=== PATIENT | female | born 1940 | race Caucasian/White ===

== ENCOUNTER 2017-11-15 19:58 | Emergency (ER) | payer OTHER, MEDICARE ==
[~2017-11-15] VITALS: Ht 152.4 cm; Wt 59.0 kg
[2017-11-15 21:03] VITALS: BP 179/98
--- NOTE | 2017-11-15 21:15 | CT SCAN REPORT ---
EXAMINATION: NONCONTRAST HEAD CT NONCONTRAST CERVICAL SPINE CT INDICATION INFORMATION: Fall with head strike COMPARISON: None TECHNIQUE: Separate noncontrast CT examinations of the head and cervical spine were performed. Coronal and sagittal images were created for each examination at the technologist workstation. DLP: 922 mGy-cm FINDINGS: Head: There is no evidence of acute intracranial hemorrhage or territorial infarction. No abnormal mass effect or midline shift is seen. Osborn to white matter differentiation is well preserved. No extra-axial fluid collections are identified. No hydrocephalus. No significant volume loss. There is no abnormal attenuation within the brain parenchyma. Prominent soft tissue swelling overlying the right occipital and parietal region with subgaleal hematoma. No associated calvarial fracture. The mastoid air cells and visualized portions of the paranasal sinuses are well aerated. Cervical spine: There is anatomic alignment of the vertebral bodies and posterior elements. The atlantoaxial and atlantooccipital articulations are intact. Vertebral body heights are maintained. There is multilevel intervertebral disc space narrowing with endplate osteophyte formation and facet arthropathy. No evidence of acute fracture. No prevertebral soft tissue swelling. Nodular scarring of the lung apices.. The thyroid gland is unremarkable. IMPRESSION: 1. No acute intracranial findings. Prominent posterior right soft tissue swelling with subgaleal hematoma. 2. No acute fracture or malalignment of the cervical spine. Mild multilevel degenerative changes.
--- NOTE | 2017-11-15 22:36 | ED MVC/FALL/TRAUMA COMPLAINT ---
History of Present Illness General Chief Complaint: Facial or Head Injury Stated Complaint: FALL ON ICE, HEAD STRIKE , (-) LOC Source: patient, DAUGHTER Exam Limitations: no limitations Vital Signs & Intake/Output Vital Signs & Intake/Output Vital Signs Date Time Temp Pulse Resp B/P B/P Pulse O2 O2 Flow FiO2 Mean Ox Delivery Rate 11/15 2103 96.8 72 18 179/98 98 Room Air Allergies Coded Allergies: NO KNOWN ALLERGIES (05/12/13) Triage Note: PT TO ED C/O HEADACHE AND SORE NECK ON RT SIDE S/P SLIPPING AND FALLING ON ICE TWICE IN A MINUTE AT 10 AM THIS AM. DENIES LOC. DENIES N/V. C/O HEADACHE. PT REFUSES IBUPROFIN OR TYLENOL IN TRIAGE. DENIES BLOOD THINNERS Triage Nurses Notes Reviewed? yes Onset: Morning Duration: hour(s):, better, constant, continues in ED Timing: multiple episodes today Severity: moderate Injuries/Fall Location: head, neck, lower extremity (RIGHT HIP) Method of Injury: fall Loss of Consciousness: no loss of consciousness HPI: Patient presents for evaluation of injury sustained status post fall on the ice this morning. 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 When her daughter returned home she requested that the patient be evaluated in the emergency department. There has been no altered mental status vomiting or visual changes. Although the patient states that her right hip is bothering her she has been ambulatory since fall. According to the patient's daughter she is at her baseline mentation. Patient denies numbness or tingling loss of sensation or paresthesias. Past History Travel History Traveled to [place] past 21 day No Medical History Any Pertinent Medical History? see below for history EENT: cataracts Psychiatric: depression Endocrine: hypothyroidism Surgical History Surgical History: non-contributory Psychosocial History What is your primary language Greenlandic Tobacco Use: Quit >30 days ago ETOH Use: occasional use Illicit Drug Use: denies illicit drug use Family History Hx Contributory? No Review of Systems Review of Systems Constitutional: Reports: no symptoms. Eyes: Reports: no symptoms. Ears, Nose, Throat, Mouth: Reports: no symptoms. Respiratory: Reports: no symptoms. Cardiovascular: Reports: no symptoms. Gastrointestinal/Abdominal: Reports: no symptoms. Genitourinary: Reports: no symptoms. Musculoskeletal: Reports: see HPI. Skin: Reports: no symptoms. Neurological/Psychological: Reports: headache. All Other Systems: Reviewed and Negative Physical Exam Physical Exam General Appearance: SEE BELOW Comments: Gen.: Well-nourished, well-developed, no acute respiratory distress. Head: Normocephalic, mild soft tissue swelling and tenderness over the right occipital lobe medially Eyes: Normal inspection bilaterally, oswaldo, EOMI Ears: Normal inspection bilaterally, no patel sign Nose: Normal inspection Throat/mouth : Moist mucosa Neck: Supple, full range of motion, no goiter, mild tenderness over the right trapezius Heart: Regular rate and rhythm, no murmurs rubs or gallops Lungs: Clear to auscultation bilaterally with normal air entry Chest: Nontender Back: Normal range of motion, nontender Abdomen: Soft, nontender, nondistended, normal bowel sounds Pelvis: Stable and nontender Extremities: Normal range of motion grossly, no tenderness, no cyanosis clubbing or edema Neurologic: Cranial nerves 2 through 12 intact, speech is clear, gait is stable Skin: warm and dry Psychiatric: Calm, cooperative, no apparent delusions or hallucinations Core Measures ACS in differential dx? No CVA/TIA Diagnosis No Sepsis Present: No Sepsis Focused Exam Completed? No Progress Differential Diagnosis: HEAD TRAUMA, c-SPINE TRAUMA, EXTREMITY TRAUMA Plan of Care: [id number] pain medication, ice, rest Diagnostic Imaging: Discussed w/RAD: CT Scan. Radiology Impression: PATIENT: YO ABRAHAM PRESENT AGE: 76 PATIENT ACCOUNT NO: [id number] : 39 LOCATION: [facility] ORDERING PHYSICIAN: Michelle HO SERVICE DATE: 11/15/17 EXAM TYPE: CAT - CT CERV SPINE WO IV CONTRAST; CT HEAD WO IV CONTRAST EXAMINATION: NONCONTRAST HEAD CT NONCONTRAST CERVICAL SPINE CT INDICATION INFORMATION: Fall with head strike COMPARISON: None TECHNIQUE: Separate noncontrast CT examinations of the head and cervical spine were performed. Coronal and sagittal images were created for each examination at the technologist workstation. DLP: 922 mGy-cm FINDINGS: Head: There is no evidence of acute intracranial hemorrhage or territorial infarction. No abnormal mass effect or midline shift is seen. Osborn to white matter differentiation is well preserved. No extra-axial fluid collections are identified. No hydrocephalus. No significant volume loss. There is no abnormal attenuation within the brain parenchyma. Prominent soft tissue swelling overlying the right occipital and parietal region with subgaleal hematoma. No associated calvarial fracture. The mastoid air cells and visualized portions of the paranasal sinuses are well aerated. Cervical spine: There is anatomic alignment of the vertebral bodies and posterior elements. The atlantoaxial and atlantooccipital articulations are intact. Vertebral body heights are maintained. There is multilevel intervertebral disc space narrowing with endplate osteophyte formation and facet arthropathy. No evidence of acute fracture. No prevertebral soft tissue swelling. Nodular scarring of the lung apices.. The thyroid gland is unremarkable. IMPRESSION: 1. No acute intracranial findings. Prominent posterior right soft tissue swelling with subgaleal hematoma. 2. No acute fracture or malalignment of the cervical spine. Mild multilevel degenerative changes. DICTATED BY: Abraham Harrington MD DATE/TIME DICTATED:11/15/172106 WARRANTY ADMINISTRATOR:YASMINE DATE/TIME TRANSCRIBED:2106 CONFIDENTIAL, DO NOT COPY WITHOUT APPROPRIATE AUTHORIZATION. < Electronically signed in Other Vendor System> SIGNED BY: Abraham Harrington MD 11/15/172114 Departure Departure Disposition: HOME OR SELF CARE Condition: Stable Clinical Impression Primary Impression: Minor head trauma Secondary Impressions: Fall Qualifiers: Encounter type: initial encounter Qualified Code: W19.XXXA - Unspecified fall, initial encounter Neck strain Qualifiers: Encounter type: initial encounter Qualified Code: S16.1XXA - Strain of muscle, fascia and tendon at neck level, initial encounter Referrals: Patient Has No Primary Care Dr (PCP/Family) Additional Instructions: Ice to any areas of swelling over the next 2-3 days. Vrou-uhd-pabuvjp pain medication as needed. Rest and avoid exertion. Notify your primary care physician of this emergency department visit and treatment plan and arrange for follow-up appointment if not improved over the next 5-7 days. Return if any concerns or sudden worsening. Please note that there might be incidental findings in your evaluation that are unrelated to the current emergency department visit. Please notify your primary care doctor about this emergency department visit in order to obtain and review all of the testing performed so that these incidental findings can be monitored as needed. If you had an x-ray performed, please understand that some fractures may not be seen on the initial set of x-rays. If your symptoms persist you might need a repeat set of x-rays to check for such a fracture. If you had a laceration evaluated, please understand that foreign bodies such as glass or wood may not be visible to the naked eye or on plain x-rays. If the wound becomes red, swollen, increasingly more painful or if there is any drainage from the wound, please have it reevaluated by a physician for the possibility of a retained foreign body. If you're unable to follow up as outlined in the discharge instructions please return to the emergency department. Thank you for choosing the [facility] Emergency Department for your care. It was a pleasure to serve you today. Sadiq Dutta M.D. [facility] Departure Forms: Customer Survey General Discharge Information
== END 2017-11-15 23:09 ==
LOC: ERH 19:58
DX: S16.1XXA Strain of muscle, fascia and tendon at neck level, initial encounter (principal); S09.90XA Unspecified injury of head, initial encounter; W00.0XXA Fall on same level due to ice and snow, initial encounter; Y92.9 Unspecified place or not applicable; Y93.9 Activity, unspecified